=== PATIENT | female | born 1965 | race Caucasian/White ===

== ENCOUNTER 2016-10-02 13:38 | Emergency (ER) | payer MEDICARE, OTHER ==
[~2016-10-02] VITALS: Ht 157.5 cm; Wt 65.8 kg
[~2016-10-02 13:38] MED LIST: ALBU8.5H6 IH; AMLO5TAB2 PO; CALC-98 PO; CITA20TA9 PO; FLUT1DIS3 IH; FLUT9.9S NS; HYDR-2762 PO; LISI10TA2 PO; OXYC-323 PO; TIOT18CA IH; TRAZ50TA15 PO
--- NOTE | 2016-10-02 13:55 | PHYS DOC ---
Past Medical History Past Medical History: Asthma, COPD, Hypertension Past Surgical History: No Surgical History Alcohol Use: Occasionally Drug Use: None Adult General Chief Complaint Chief Complaint: HEADACHE HPI HPI Patient is a 50 year old female presenting to the emergency department for evaluation of worsening headache. Headache is mostly in her right parietal area and she says it radiates down her right neck. She says that she has had this headache for one year and she says she has it most days and some days that she wakes up with it and has it all day. She saw her primary care provider Dr. Frausto 3 months ago and he ordered an outpatient MRI for her however she says that she did not get it for unclear reasons. She says that she has some nausea but no fevers chills nausea vomiting neck stiffness or photophobia. Patient is crying and tearful and she says she is tired of having these headaches and her primary did prescribe her [place] which helps however she is now out of this medication. She is in no obvious distress with normal vital signs. Review of Systems Review of Systems Constitutional: Denies fever or chills [] Eyes: Denies change in visual acuity, redness, or eye pain [] HENT: Denies nasal congestion or sore throat [] Respiratory: Denies cough or shortness of breath [] Cardiovascular: No additional information not addressed in HPI [] GI: Denies abdominal pain, nausea, vomiting, bloody stools or diarrhea [] : Denies dysuria or hematuria [] Musculoskeletal: Denies back pain or joint pain [] Integument: Denies rash or skin lesions [] Neurologic: + headache. No focal weakness or sensory changes [] Current Medications Current Medications Current Medications Medications (Trade) Dose Ordered Sig/Josephine Start Time Stop Time Status Last Admin Dose Admin Diphenhydramine HCl (Benadryl) 50 mg 1X ONCE 10/02/16 14:00 10/02/16 14:05 DC 10/02/16 14:38 50 MG Ketorolac Tromethamine (Toradol) 30 mg 1X ONCE 10/02/16 14:00 10/02/16 14:05 DC 10/02/16 14:38 30 MG Prochlorperazine Edisylate (Compazine) 10 mg 1X ONCE 10/02/16 14:00 10/02/16 14:05 DC 10/02/16 14:38 10 MG Allergies Allergies Allergies Coded Allergies Type Severity Reaction Last Updated Verified Penicillins Allergy Intermediate Rash 06/07/14 Yes Physical Exam Physical Exam Constitutional: Well developed, well nourished, no acute distress, non-toxic appearance. [] HENT: Normocephalic, atraumatic, bilateral external ears normal, oropharynx moist, no oral exudates, nose normal. [] Eyes: PERRLA, EOMI, conjunctiva normal, no discharge. [] Neck: Normal range of motion, no tenderness, supple, no stridor. [] Cardiovascular:Heart rate regular rhythm, no murmur [] Lungs & Thorax: Bilateral breath sounds clear to auscultation [] Abdomen: Bowel sounds normal, soft, no tenderness, no masses, no pulsatile masses. [] Skin: Warm, dry, no erythema, no rash. [] Back: No tenderness, no CVA tenderness. [] Extremities: No tenderness, no cyanosis, no clubbing, ROM intact, no edema. [] Neurologic: Alert and oriented X 3, normal motor function, normal sensory function, no focal deficits noted. [] Current Patient Data Vital Signs Vital Signs Date Time Temp Pulse Resp B/P (MAP) Pulse Ox O2 Delivery O2 Flow Rate FiO2 10/02/16 13:58 98.2 84 59 154/92 (112) 95 Room Air 98.2 Lab Values Laboratory Tests Test 10/02/16 14:20 Urine Color Yellow Urine Clarity Clear Urine pH 7.0 Urine Specific [place] <=1.005 Urine Protein Negative mg/dL (NEG-TRACE) Urine Glucose (UA) Negative mg/dL (NEG) Urine Ketones (Stick) Negative mg/dL (NEG) Urine Blood Negative (NEG) Urine Nitrite Negative (NEG) Urine Bilirubin Negative (NEG) Urine Urobilinogen Dipstick 0.2 mg/dL (0.2 mg/dL) Urine Leukocyte Esterase Moderate (NEG) Urine RBC 0 /HPF (0-2) Urine WBC 5-10 /HPF (0-4) Urine Squamous Epithelial Cells Occ /LPF Urine Amorphous Sediment Present /HPF Urine Bacteria Moderate /HPF (0-FEW) Urine Opiates Screen Neg (NEG) Urine Methadone Screen Neg (NEG) Urine Barbiturates Neg (NEG) Urine Phencyclidine Screen Neg (NEG) Urine Amphetamine/Methamphetamine Neg (NEG) Urine Benzodiazepines Screen Neg (NEG) Urine Cocaine Screen Pos (NEG) Urine Cannabinoids Screen Pos (NEG) Ethyl Alcohol Level < 10 mg/dL (0-10) Urine Ethyl Alcohol Neg (NEG) EKG EKG [] Radiology/Procedures Radiology/Procedures CT of the head without contrast, 10/02/2016: History: Left-sided headache Comparison is made to a study from 07/10/2013. The ventricles are within normal limits in size. There is no shift of the midline structures. There is no evidence of acute intracranial hemorrhage or mass effect. IMPRESSION: No acute intracranial abnormality is detected. PQRS Compliance Statement: One or more of the following individualized dose reduction techniques were utilized for this examination: 1. Automated exposure control 2. Adjustment of the mA and/or kV according to patient size 3. Use of iterative reconstruction technique DICTATED and SIGNED BY: ONEL ADAMES MD DATE: 10/02/163 Course & Med Decision Making Course & Med Decision Making Patient has a headache that is chronic in nature and she is tired of having the headaches. Based off description this is likely a tension headache and I highly doubt acute causes such as cerebral venous thrombosis subarachnoid hemorrhage meningitis temporal arteritis. Patient's headache resolved with Toradol Compazine and Benadryl and her repeat neurologic exam is normal. We were unable to get blood on her and she refused any further blood sticks. Given patient appears well with normal vital signs benign physical exam and workup she will be discharged with K[place]en for pain and Cipro for a possible urinary tract infection and told her to follow with her primary care provider and come back to the ER sooner with worsening pain fevers vomiting or other general concerns. Patient verbalized understanding of the above instructions. Dragon Disclaimer Dragon Disclaimer This electronic medical record was generated, in whole or in part, using a voice recognition dictation system. Departure Departure Impression: Primary Impression: Headache Additional Impression: UTI (urinary tract infection) Disposition: 01 HOME, SELF-CARE Condition: GOOD Referrals: ERICK FRAUSTO MD (PCP) Patient Instructions: General Headache Without Cause Additional Instructions: TAKE 400MG OF IBUPROFEN EVERY 6 HOURS AND THE NORCO FOR BREAKTHROUGH PAIN. FOLLOW WITH YOUR PCP TO ENSURE IMPROVEMENT AND GET THE MRI THEY DIRECTED. COME BACK TO THE ED SOONER WITH ANY NEW OR WORSENING SYMPTOMS. THANK YOU! Scripts Ciprofloxacin Hcl (CIPROFLOXACIN HCL) 250 Mg Tablet 1 TAB PO BID, #6 TAB Prov: DUSTY BHANDARI DO 10/02/16 Hydrocodone/Apap 5-325 (NORCO 5-325 TABLET) 1 Each Tablet 1 TAB PO PRN Q6HRS Y for PAIN, #12 TAB 0 Refills Prov: DUSTY BHANDARI DO 10/02/16 Problem Qualifiers Primary Impression: Headache Headache type: unspecified Headache chronicity pattern: chronic headache Intractability: not intractable Qualified Codes: R51 - Headache DUSTY BHANDARI DO Oct 02, 2016 13:54
[2016-10-02] MEDS ORDERED: diphenhydrAMINE 50 MG/ML VIAL IVP ONE (14:00)
[2016-10-02] MEDS ORDERED: PROCHLORPERAZINE 10 MG/2 ML VIAL. IV ONE (14:00)
[2016-10-02] MEDS ORDERED: KETOROLAC TROMETHAMINE 30 MG/ML INJ. IV ONE (14:00)
[2016-10-02 14:31] LABS: BILIRUBIN,URINE NEGATIVE (NEG); GLUCOSE,URINE NEGATIVE (NEG); NITRITE,URINE NEGATIVE (NEG); PROTEIN,URINE NEGATIVE (NEG-TRACE); UROBILINOGEN,URINE 0.2 mg/dL (0.2 mg/dL)
[2016-10-02 14:37] LABS: BARBITURATES NEG (NEG); BENZODIAZEPINES NEG (NEG); CANNABINOIDS POS (NEG); COCAINE POS (NEG); METHADONE NEG (NEG); OPIATES NEG (NEG); PHENCYCLIDINE NEG (NEG)
--- NOTE | 2016-10-02 14:37 | EKG ---
[facility] [address] [place] [address] Test Date: 2016-10-02 Test Time: 13:54:19 Pat Name: MICHELLE SANCHEZ Department: Room: Gender: F [employer]: : 1965 Requested By: DUSTY BHANDARI Order Number: [id number] Reading MD: Gurmeet Veloz Measurements Intervals [place] Rate: 68 P: 145 TX: 138 QRS: 158 QRSD: 74 T: 139 QT: 398 QTc: 428 Interpretive Statements SUPRAVENTRICULAR RHYTHM ABNORMAL RIGHT AXIS DEVIATION QRS(T) CONTOUR ABNORMALITY CONSISTENT WITH HIGH LATERAL INFARCT AGE UNDETERMINED RI6.01 Unconfirmed report Compared to ECG 07/10/2013 00:02:50 Supraventricular rhythm now present Right-axis deviation now present Myocardial infarct finding now present Electronically Signed On 10-02-2016 16:04:44 CDT by Gurmeet Veloz
[2016-10-02 14:40] LABS: BACTERIA,URINE MODERATE /HPF (0-FEW); RBC,URINE 0 /HPF (0-2); SQUAMOUS EPITHELIAL CELL,UR OCC /LPF
--- NOTE | 2016-10-02 14:47 | RAD ---
CT of the head without contrast, 10/02/2016: History: Left-sided headache Comparison is made to a study from 07/10/2013. The ventricles are within normal limits in size. There is no shift of the midline structures. There is no evidence of acute intracranial hemorrhage or mass effect. IMPRESSION: No acute intracranial abnormality is detected. PQRS Compliance Statement: One or more of the following individualized dose reduction techniques were utilized for this examination: 1. Automated exposure control 2. Adjustment of the mA and/or kV according to patient size 3. Use of iterative reconstruction technique
[2016-10-02 15:00] VITALS: BP 112/60
[2016-10-02] MEDS ORDERED: HYDR-971 PO (15:03)
[2016-10-02] MEDS ORDERED: CIPR250T PO (15:03)
== END 2016-10-02 15:12 | disposition home or self-care (01) ==
LOC: ER 13:38
DX: R51 Headache (principal); N39.0 Urinary tract infection, site not specified; J44.9 Chronic obstructive pulmonary disease, unspecified; I10 Essential (primary) hypertension; G89.29 Other chronic pain; Z88.0 Allergy status to penicillin
CPT/HCPCS: 36415; 70450; 80307; 81001; 87086; 93005; 96374; 96375; 99285; C1887; G0480; J0780; J1200; J1885; G0479

== ENCOUNTER 2017-08-26 00:23 | Emergency (ER) | payer SELFPAY, OTHER ==
[2017-08-26 02:27] LABS: BASO % 1 % (0-3); EOS % 1 % (0-3); HEMATOCRIT 35.1 % (36.0-47.0); HEMOGLOBIN 12.1 g/dL (12.0-15.5); LYMPH # 1.5 x10^3/uL (1.0-4.8); LYMPH % 48 % (24-48); MEAN CORPUSCULAR HEMOGLOBIN 31 pg (25-35); MEAN CORPUSCULAR HGB CONC 34 g/dL (31-37); MEAN CORPUSCULAR VOLUME 91 fL (79-100); MONO # 0.7 x10^3/uL (0.0-1.1); MONO % 22 % (0-9); NEUT # 0.9 x10^3uL (1.8-7.7); NEUT % 28 % (31-73); PLATELET COUNT 240 x10^3/uL (140-400); RED BLOOD COUNT 3.84 x10^6/uL (3.50-5.40); RED CELL DISTRIBUTION WIDTH 13.3 % (11.5-14.5); WHITE BLOOD COUNT 3.1 x10^3/uL (4.0-11.0)
[2017-08-26 02:32] LABS: ADD MAN DIFF? YES
[2017-08-26] MEDS: IV NORMAL SALINE 1000ML BAG 1,000 ML IV (02:37)
[2017-08-26] MEDS: fentaNYL PF VIAL 100 MCG/2 ML VIAL IV (02:39)
[2017-08-26] MEDS: PROCHLORPERAZINE 10 MG/2 ML VIAL. IV (02:40)
[2017-08-26] MEDS: diphenhydrAMINE 50 MG/ML VIAL IVP (02:40)
[2017-08-26 05:06] LABS: ANION GAP 13 (6-14); BLOOD UREA NITROGEN 9 mg/dL (7-20); BUN/CREATININE RATIO 11 (6-20); CARBON DIOXIDE 22 mmol/L (21-32); CHLORIDE 106 mmol/L (98-107); CREATININE 0.8 mg/dL (0.6-1.0); GFR 75.3; GLUCOSE 86 mg/dL (70-99); POTASSIUM 3.9 mmol/L (3.5-5.1); SODIUM 141 mmol/L (136-145)
[2017-08-26 05:12] LABS: ALBUMIN 3.3 g/dL (3.4-5.0); ALK PHOS 85 U/L (46-116); ALT (SGPT) 56 U/L (14-59); AST (SGOT) 49 U/L (15-37); TOTAL BILIRUBIN 0.2 mg/dL (0.2-1.0); TOTAL PROTEIN 6.5 g/dL (6.4-8.2)
[2017-08-26 05:15] LABS: TROPONINI < 0.017 ng/mL (0.000-0.055)
[2017-08-26 05:33] LABS: % BANDS 1 % (0-9); % EOS 1 % (0-5); % LYMPHS 51 % (24-48); % MONOS 16 % (0-10); % SEGS 31 % (35-66); PLT ESTIMATE ADEQUATE (ADEQUATE)
== END 2017-08-26 06:37 | disposition home or self-care (01) ==
LOC: ER 00:23
DX: M54.2 Cervicalgia (principal); R51 Headache; G89.29 Other chronic pain; J44.9 Chronic obstructive pulmonary disease, unspecified; I10 Essential (primary) hypertension; F12.10 Cannabis abuse, uncomplicated; F41.9 Anxiety disorder, unspecified; F32.9 Major depressive disorder, single episode, unspecified; Z88.0 Allergy status to penicillin
CPT/HCPCS: 36415; 80053; 84484; 85007; 85025; 93005; 96361; 96374; 96375; 99285-25; J0780; J1200; J3010; J7030